=== PATIENT | female | born 1940 | race Caucasian/White ===

== ENCOUNTER 2021-07-30 12:29 | Outpatient (CLI) | payer OTHER ==
[2021-07-30 12:56] LABS: Bilirubin Negative (Negative); Blood, Urine Trace (Negative); Clarity Clear (Clear); Glucose, Urine (Dipstick) Negative (Negative); Ketone, Urine Negative (Negative); Leukocyte Negative (Negative); Nitrite Negative (Negative); Protein, Urine (Dipstick) Negative (Neg-Trace); Urobilinogen 0.2 mg/dL (Less than 2)
[2021-07-30 13:04] LABS: RBC/HPF 0-3 HPF (0-3)
[2021-07-30 13:05] LABS: Bacteria/HPF Rare-Few HPF (None Seen); Squamous Epithelial 0-3 HPF (0-3); WBC/HPF 0-3 HPF (0-3)
== END 2021-07-30 12:30 | disposition home or self-care (01) ==
LOC: MADLAB 12:29
PROVIDERS: ATTEND Family Medicine
DX: R31.29 Other microscopic hematuria (principal)
CPT/HCPCS: 81001

== ENCOUNTER 2021-08-04 14:55 | Outpatient (CLI) | payer OTHER | END 2021-08-04 14:56 | disposition home or self-care (01) | LOC: MADCT 14:55 | PROVIDERS: ATTEND Family Medicine | DX: R31.29 Other microscopic hematuria (principal) | CPT/HCPCS: 74176 ==